=== PATIENT | female | born 1965 | race Caucasian/White ===

== ENCOUNTER → 2020-08-06 | Outpatient (CLI) | payer BC ==
[~2020-08-06] MED LIST: IBU600 MG PO
== END ==
LOC: EXRD 09:50
DX: R74.01 Elevation of levels of liver transaminase levels (principal); K76.0 Fatty (change of) liver, not elsewhere classified
CPT/HCPCS: 76700

== ENCOUNTER → 2020-08-23 | Day surgery (SDC) | payer BC | END | disposition home or self-care (01) | LOC: OR 10:52 | DX: R31.9 Hematuria, unspecified (principal); Z88.2 Allergy status to sulfonamides; Z82.49 Family history of ischemic heart disease and other diseases of the circulatory system; Z85.3 Personal history of malignant neoplasm of breast; Z80.1 Family history of malignant neoplasm of trachea, bronchus and lung | CPT/HCPCS: J7040 ==

== ENCOUNTER → 2021-02-03 | Outpatient (CLI) | payer BC | LOC: EXRD 01-31 15:00 | DX: E04.2 Nontoxic multinodular goiter (principal) | CPT/HCPCS: 76536 ==

== ENCOUNTER → 2021-09-05 | Outpatient (CLI) | payer BC | LOC: KOH-I 08-10 09:00 | DX: K76.0 Fatty (change of) liver, not elsewhere classified (principal) | CPT/HCPCS: 76700 ==